=== PATIENT | female | born 1980 | race Caucasian/White ===

== ENCOUNTER 2018-07-21 09:15 | Emergency (ER) | payer OTHER ==
[2018-07-21 09:25] VITALS: BMI 29.6
[2018-07-21] MEDS ORDERED: NAPROXEN 375 MG TABLET (FP) PO ONE (10:07)
--- NOTE | 2018-07-21 10:07 | PDOC ---
History of Present Illness - General Chief Complaint: Chest Pain Stated Complaint: CHEST PAIN W/ SOB Time Seen by Provider: 07/21/18 09:34 Past History - Past Medical History Allergies/Adverse Reactions: Allergies Allergy/AdvReac Type Severity Reaction Status Date / Time No Known Allergies Allergy Verified 07/21/18 09:22 Home Medications: Ambulatory Orders Vit/Iron Fum/Folic AC [ Tablet] 1 each PO DAILY 07/01/14 Anemia: Yes Asthma: No Cancer: No Cardiac Disorders: No COPD: No Diabetes: No HTN: No Seizures: No Thyroid Disease: No - Reproductive History (#): 3 Para: 3 Cervical CA: No Dysfunctional Uterine Bleeding: No Ectopic : No Endometrial CA: No Polycystic Ovaries: No Tubal Ligation: No - Immunization History Immunization Up to Date: Yes - Suicide/Smoking/Psychosocial Hx Smoking History: Never smoked Have you smoked in the past 12 months: No If you are a former smoker, when did you quit?: n Hx Alcohol Use: No Drug/Substance Use Hx: No Substance Use Type: None Hx Substance Use Treatment: No *Physical Exam - Vital Signs Last Vital Signs Temp Pulse Resp BP Pulse Ox 97.7 F 67 18 106/65 99 07/21/18 09:23 07/21/18 09:23 07/21/18 09:23 07/21/18 09:23 07/21/18 09:23 ED Treatment Course - LABORATORY CBC & Chemistry Diagram: 07/21/18 10:45 07/21/18 10:45 *DC/Admit/Observation/Transfer Diagnosis at time of Disposition: Atypical chest pain - Discharge Dispostion Disposition: HOME Condition at time of disposition: Stable Decision to Admit order: No - Referrals Referrals: Arcelia Sheppard MD [Primary Care Provider] - Enma Vasquez MD [Staff Physician] - - Patient Instructions Printed Discharge Instructions: DI for Atypical Chest Pain Additional Instructions: You were evaluated for your chest pain today. Your EKG, chest x-ray and lab work was normal. This may be a muscle spasm. Please take the cyclobenzaprine when you get home and then before bed tonight. Tomorrow take the cyclbenzaprine night. Do not drink or drive after taking his medications may make you drowsy. Please up with her primary care doctor and cardiology. Referral to them provided. Return to the ER for worsening chest pain, short of breath, lightheadedness, dizziness or if you have any changes in her symptoms. - Post Discharge Activity Forms/Work/School Notes: Back to Work
[2018-07-21] MEDS ORDERED: NAPROXEN 500 MG TABLET (FP) ONE (10:46)
[2018-07-21 10:58] LABS: EOS % 1.2 % (0-4.5); HEMATOCRIT 40.3 % (32.4-45.2); HEMOGLOBIN 14.4 GM/dL (10.7-15.3); LYMPH % 37.9 % (8-40); MCH 31.9 pg (25.7-33.7); MCHC 35.7 g/dl (32.0-36.0); MEAN CELL VOLUME 89.4 fl (80-96); MEAN PLT VOLUME 6.9 fl (7.5-11.1); MONO % 8.5 % (3.8-10.2); NEUT % 51.4 % (42.8-82.8); PLATELET COUNT 271 K/MM3 (134-434); RBC 4.51 M/mm3 (3.60-5.2); RDW 12.8 % (11.6-15.6); WHITE BLOOD COUNT 3.9 K/mm3 (4.0-10.0)
[2018-07-21 11:26] LABS: ALK PHOS 85 U/L (45-117); ANION GAP 10 MMOL/L (8-16); BILIRUBIN,TOTAL 1.3 mg/dL (0.2-1); BLOOD UREA NITROGEN 16 mg/dL (7-18); CHLORIDE 116 mmol/L (98-107); CO2 26 mmol/L (21-32); CREATININE 0.7 mg/dL (0.55-1.3); GLUCOSE,RANDOM 84 mg/dL (74-106); POTASSIUM 4.2 mmol/L (3.5-5.1); SGOT/AST 27 U/L (15-37); SGPT/ALT 31 U/L (13-61); SODIUM 151 mmol/L (136-145); TOT PROT 7.4 g/dl (6.4-8.2)
[2018-07-21 13:00] VITALS: BP 116/67; PULSE 54; TEMP 98.1
== END 2018-07-21 13:40 | disposition home or self-care (01) ==
LOC: JER 09:15
DX: R07.9 Chest pain, unspecified (principal)
CPT/HCPCS: 36415; 71046-TC-FY; 80053; 82550; 82553; 84484; 85025; 99281-25

== ENCOUNTER 2020-03-04 09:25 | Emergency (ER) | payer OTHER ==
[2020-03-04 09:38] VITALS: BP 109/69; PULSE 77; TEMP 98.6; BMI 28.9
[2020-03-04] MEDS ORDERED: IBUPROFEN 400 MG TABLET (FP) PO ONE ×2 (10:25→10:26)
== END 2020-03-04 10:37 | disposition home or self-care (01) ==
LOC: JERFT 09:25
DX: S90.122A Contusion of left lesser toe(s) without damage to nail, initial encounter (principal)
CPT/HCPCS: 73630-TC-LT; 99283-25

== ENCOUNTER → 2021-03-06 | Day surgery (SDC) | payer OTHER ==
[2021-02-16 11:12] VITALS: BMI 28.6
[2021-03-06 12:13] VITALS: TEMP 98.4
[2021-03-06 12:46] VITALS: BP 128/80
[2021-03-06 13:14] VITALS: PULSE 57
== END | disposition home or self-care (01) ==
LOC: JASU-ENDO 04:42
PROVIDERS: ATTEND Internal Medicine Gastroenterology
PROC: 0DB78ZX Excision of Stomach, Pylorus, Via Natural or Artificial Opening Endoscopic, Diagnostic (ICD-10-PCS; 2021-03-06)
PROC: 0DB68ZX Excision of Stomach, Via Natural or Artificial Opening Endoscopic, Diagnostic (ICD-10-PCS; 2021-03-06)
PROC: 0DB98ZX Excision of Duodenum, Via Natural or Artificial Opening Endoscopic, Diagnostic (ICD-10-PCS; principal; 2021-03-06 11:45)
DX: K29.80 Duodenitis without bleeding (principal); K29.50 Unspecified chronic gastritis without bleeding
CPT/HCPCS: 36415; 81025; 81377; 81383; 88305-TC; 88342-TC

== ENCOUNTER 2021-07-17 09:00 | Emergency (ER) | payer OTHER ==
[2021-07-17 09:09] VITALS: BP 111/74; PULSE 60; TEMP 97.9; BMI 28.3
[2021-07-17] MEDS ORDERED: SODIUM CHLORIDE 0.9% 500 ML INFUS.BAG IV ONE (10:19)
[2021-07-17] MEDS ORDERED: ONDANSETRON 4 MG/2 ML VIAL IVPUSH ONE (10:19)
[2021-07-17] MEDS ORDERED: MECLIZINE HCL 25 MG TABLET (FP) PO ONE (10:19)
[2021-07-17] MEDS ORDERED: MECLIZINE HCL 25 MG TABLET (FP) ONE (11:33)
[2021-07-17] MEDS ORDERED: ONDANSETRON 4 MG/2 ML VIAL ONE (11:33)
[2021-07-17 11:53] LABS: BASO % 0.9 % (0-2.0); EOS % 0.8 % (0-4.5); HEMATOCRIT 39.7 % (32.4-45.2); HEMOGLOBIN 13.8 GM/dL (10.7-15.3); LYMPH % 36.6 % (8-40); MCH 31.2 pg (25.7-33.7); MCHC 34.8 g/dl (32.0-36.0); MEAN CELL VOLUME 89.6 fl (80-96); MEAN PLT VOLUME 6.4 fl (7.5-11.1); MONO % 6.8 % (3.8-10.2); NEUT % 54.9 % (42.8-82.8); PLATELET COUNT 217 10^3/uL (134-434); RBC 4.43 M/mm3 (3.60-5.2); RDW 12.9 % (11.6-15.6); WHITE BLOOD COUNT 3.3 K/mm3 (4.0-10.0)
[2021-07-17 12:08] LABS: ALBUMIN 3.4 g/dl (3.4-5.0); BLOOD UREA NITROGEN 12.9 mg/dL (7-18); CALCIUM 8.8 mg/dL (8.5-10.1)
[2021-07-17 12:11] LABS: CREATININE 0.6 mg/dL (0.55-1.3)
[2021-07-17 12:13] LABS: BILIRUBIN,TOTAL 1.1 mg/dL (0.2-1)
== END 2021-07-17 13:41 | disposition home or self-care (01) ==
LOC: JER 09:00
PROC: 3E033GC Introduction of Other Therapeutic Substance into Peripheral Vein, Percutaneous Approach (ICD-10-PCS; principal; 2021-07-17)
DX: R42 Dizziness and giddiness (principal)
CPT/HCPCS: 36415; 80053; 85025; 93005; 93010; 99284-25

== ENCOUNTER 2021-10-30 04:42 | Day surgery (SDC) | payer OTHER ==
[2021-10-26 09:57] VITALS: BMI 29.1
[2021-10-30] MEDS ORDERED: BUPIVACAINE HCL/PF 0.75% 10 ML VIAL ONE (07:19)
[2021-10-30] MEDS ORDERED: LIDOCAINE HCL/PF 1% SDV 5ML VIAL ONE (07:19)
[2021-10-30 07:26] VITALS: PULSE 74; RESP 18
[2021-10-30] MEDS ORDERED: BUPIVACAINE HCL/PF 0.75% 10 ML VIAL NR ONE (08:52)
[2021-10-30] MEDS ORDERED: LIDOCAINE HCL 1% PRESERVATIVE FREE - 30ML VIAL IJ ONE (08:53)
[2021-10-30 09:27] VITALS: BP 107/74; TEMP 99
== END 2021-10-30 09:18 | disposition home or self-care (01) ==
LOC: JASU-SURG 04:42
PROVIDERS: ATTEND Pain Medicine Pain Medicine
PROC: 3E0T33Z Introduction of Anti-inflammatory into Peripheral Nerves and Plexi, Percutaneous Approach (ICD-10-PCS; 2021-10-30)
PROC: 3E0T3BZ Introduction of Anesthetic Agent into Peripheral Nerves and Plexi, Percutaneous Approach (ICD-10-PCS; principal; 2021-10-30 08:30)
DX: M54.16 Radiculopathy, lumbar region (principal)
CPT/HCPCS: 76000-TC-FY; 81025

== ENCOUNTER 2023-07-15 04:54 | Day surgery (SDC) | payer OTHER ==
[2023-07-14 12:27] VITALS: BMI 29.9
[2023-07-15 13:31] VITALS: TEMP 98
[2023-07-15 13:33] VITALS: PULSE 60
[2023-07-15 13:35] VITALS: BP 120/73; RESP 15
== END 2023-07-15 13:44 | disposition home or self-care (01) ==
LOC: JASU-ENDO 04:54
PROVIDERS: ATTEND Internal Medicine Gastroenterology
PROC: 0DB78ZX Excision of Stomach, Pylorus, Via Natural or Artificial Opening Endoscopic, Diagnostic (ICD-10-PCS; 2023-07-15)
PROC: 0DB68ZX Excision of Stomach, Via Natural or Artificial Opening Endoscopic, Diagnostic (ICD-10-PCS; 2023-07-15)
PROC: 0DB98ZX Excision of Duodenum, Via Natural or Artificial Opening Endoscopic, Diagnostic (ICD-10-PCS; principal; 2023-07-15 11:30)
DX: K29.50 Unspecified chronic gastritis without bleeding (principal)
CPT/HCPCS: 88305-TC; 88342-TC

== ENCOUNTER 2023-11-11 04:22 | Day surgery (SDC) | payer OTHER ==
[2023-11-10 10:21] VITALS: BMI 29.1
[2023-11-11] MEDS ORDERED: EPINEPHrine 1:10,000 (P-F SYR) 1 MG/10 ML DISP.SYRIN ONE (08:38)
[2023-11-11 09:10] VITALS: BP 113/67; PULSE 62; RESP 13; TEMP 98
== END 2023-11-11 09:40 | disposition home or self-care (01) ==
LOC: JASU-ENDO 04:22
PROVIDERS: ATTEND Internal Medicine Gastroenterology
PROC: 0DBN8ZX Excision of Sigmoid Colon, Via Natural or Artificial Opening Endoscopic, Diagnostic (ICD-10-PCS; 2023-11-11)
PROC: 0DBP8ZX Excision of Rectum, Via Natural or Artificial Opening Endoscopic, Diagnostic (ICD-10-PCS; principal; 2023-11-11 08:00)
DX: D12.8 Benign neoplasm of rectum (principal); D12.5 Benign neoplasm of sigmoid colon; K57.30 Diverticulosis of large intestine without perforation or abscess without bleeding; K64.8 Other hemorrhoids
CPT/HCPCS: 81025; 88305-TC